=== PATIENT | male | born 1950 | race Caucasian/White ===

== ENCOUNTER → 2024-11-06 | Outpatient (REF) | payer MEDICARE, OTHER ==
[2024-11-06 14:46] LABS: RHEUMATOID FACTOR QUANT < 3.5 IU/ML (<14)
[2024-11-06 14:48] LABS: ANTI-STREPTOLYSIN O QUANT 26.2 IU/ML (<195)
[2024-11-08 12:47] LABS: ANTI CENTROMERE ANTIBODY <1.0 NEG AI (<1.0 NEG); ANTI SCLERODERMA ANTIBODIES <1.0 NEG AI (<1.0 NEG); SSA SJOGRENS A >8.0 POS AI (<1.0 NEG); SSB SJOGRENS B <1.0 NEG AI (<1.0 NEG)
== END ==
LOC: M SFHCADAM 10:09
PROVIDERS: ATTEND Physician Assistant
DX: L40.9 Psoriasis, unspecified (principal); Z79.899 Other long term (current) drug therapy; L29.9 Pruritus, unspecified; L30.8 Other specified dermatitis; Z11.3 Encounter for screening for infections with a predominantly sexual mode of transmission; Z72.89 Other problems related to lifestyle